=== PATIENT | male | born 1955 | race Caucasian/White ===

== ENCOUNTER 2016-09-28 05:44 | Inpatient (IN) | payer BC ==
[~2016-09-28] VITALS: Ht 162.6 cm; Wt 72.6 kg
[~2016-09-28 05:44] MED LIST: MULTTAB22 PO
[2016-09-28] MEDS ORDERED: CIPROFLOXACIN 400 MG in APPROPRIATE DILUENT 1 EA IV ONE (06:00)
[2016-09-28] MEDS ORDERED: LR 1,000 ML IV SCH ×2 (06:00→12:30)
[2016-09-28] MEDS ORDERED: fentaNYL 250 MCG/5 ML INJECTION (J3010) As Ordered ONE (07:20)
[2016-09-28] MEDS ORDERED: PROPOFOL 200 MG/20 ML VIAL As Ordered ONE ×2 (07:20→10:59)
[2016-09-28] MEDS ORDERED: MIDAZOLAM INJ 2 MG/2 ML VIAL (J2250) As Ordered ONE ×3 (07:20→11:26)
[2016-09-28] MEDS ORDERED: ROCURONIUM BROMIDE 50 MG/5 ML VIAL As Ordered ONE ×2 (07:20→08:55)
[2016-09-28] MEDS ORDERED: LIDOCAINE 2% INJ 100 MG/5 ML SDV (FOR ANES.) As Ordered ONE (07:20)
[2016-09-28] MEDS ORDERED: GLYCOPYRROLATE INJ 0.2 MG/ML 2 ML VIAL As Ordered ONE (08:55)
[2016-09-28] MEDS ORDERED: NEOSTIGMINE 1MG/ML 5 ML SYRINGE (J2710) As Ordered ONE (08:55)
[2016-09-28] MEDS ORDERED: LABETALOL HCL 100 MG/20 ML VIAL As Ordered ONE ×2 (08:55→12:21)
[2016-09-28] MEDS ORDERED: dexameTHASONE 4 MG/ML 1ML VIAL (J1100) As Ordered ONE (08:55)
[2016-09-28] MEDS ORDERED: ONDANSETRON 4MG/2ML VIAL (J2405) As Ordered ONE (09:04)
[2016-09-28] MEDS ORDERED: HYDROmorphone HCL 2 MG/ML 1ML VIAL (J1170) As Ordered ONE ×2 (09:04→13:24)
[2016-09-28] MEDS ORDERED: SEVOFLURANE INHAL SOLN 250 ML BTL As Ordered ONE (11:45)
[2016-09-28] MEDS ORDERED: KETOROLAC 30 MG/ML VIAL (J1885) As Ordered ONE (11:59)
[2016-09-28] MEDS: KETOROLAC 30 MG/ML VIAL (J1885) IV SCH (12:00)
[2016-09-28] MEDS: KCL 20MEQ IN D5/0.45NS 1000ML 1,000 ML IV SCH ×2 (12:15→21:27)
[2016-09-28] MEDS ORDERED: ONDANSETRON 4MG/2ML VIAL (J2405) IV PRN ×2 (12:15→12:30)
[2016-09-28] MEDS ORDERED: MORPHINE 4 MG/ML 1ML SYRINGE IV PRN (12:15)
[2016-09-28] MEDS ORDERED: oxyCODONE 5MG TAB PO PRN (12:15)
[2016-09-28] MEDS ORDERED: fentaNYL 100 MCG/2 ML INJECTION (J3010) IV PRN (12:30)
[2016-09-28] MEDS ORDERED: MORPHINE 2 MG/ML 1ML SYRINGE IV PRN (12:30)
[2016-09-28 12:44] LABS: MEAN CORPUSCULAR HEMOGLOBIN 34.5 pg (27.0-33.0); MEAN CORPUSCULAR VOLUME 95.8 fl (80.0-96.0); RED CELL DISTRIBUTION WIDTH 12.6 % (11.5-14.5); WHITE BLOOD COUNT 8.6 K/mm3 (4.0-10.0)
[2016-09-28 12:57] LABS: ANION GAP 8 MEQ/L (8-16); BLOOD UREA NITROGEN 9 MG/DL (7-18); CALCIUM LEVEL 8.4 MG/DL (8.8-10.2); CARBON DIOXIDE LEVEL 29 MEQ/L (21-32); CHLORIDE LEVEL 104 MEQ/L (98-107); CREATININE FOR GFR 0.91 MG/DL (0.70-1.30); GLOMERULAR FILTRATION RATE > 60.0 (>49); GLUCOSE, FASTING 150 MG/DL (80-110); POTASSIUM SERUM 4.5 MEQ/L (3.5-5.1); SODIUM LEVEL 141 MEQ/L (136-145)
[2016-09-28] MEDS ORDERED: PHENYLephrine HCL 500 MCG/5 ML (100MCG/ML) SYRINGE (J2370) As Ordered ONE (13:56)
[2016-09-28] MEDS ORDERED: ePHEDrine SULFATE 25 MG/5 ML(5MG/ML) SYRINGE As Ordered ONE (14:05)
[2016-09-28 14:45] VITALS: BP 136/72
[2016-09-28 15:15] VITALS: BP 137/72
[2016-09-28] MEDS: ACETAMINOPHEN 650MG ER TAB (TYLENOL ARTHRITIS) PO SCH ×2 (16:01→21:28)
[2016-09-28 16:15] VITALS: BP 123/72
[2016-09-28] MEDS: CIPROFLOXACIN 500 MG TAB PO SCH (17:45)
[2016-09-28 20:00] VITALS: BP 119/63
[2016-09-28] MEDS ORDERED: PANTOPRAZOLE 40MG INJ (PROTONIX) (C9113) IV SCH (21:00)
[2016-09-29 02:00] VITALS: BP 122/70
[2016-09-29] MEDS: KETOROLAC 30 MG/ML VIAL (J1885) IV SCH ×2 (03:03→12:31)
[2016-09-29] MEDS: ACETAMINOPHEN 650MG ER TAB (TYLENOL ARTHRITIS) PO SCH ×2 (05:22→14:49)
[2016-09-29] MEDS: CIPROFLOXACIN 500 MG TAB PO SCH (05:22)
[2016-09-29 06:00] VITALS: BP 123/65
--- NOTE | 2016-09-29 06:40 | RO ---
DATE OF PROCEDURE: 09/28/2016 PREOPERATIVE DIAGNOSIS: Prostate cancer. POSTOPERATIVE DIAGNOSIS: Prostate cancer. PROCEDURE: Robotic-assisted radical prostatectomy. SURGEON: Dr. Art Zimmer. AUTOMOTIVE PARTS COUNTER ASSISTANT: Elaine Bray. ANESTHESIA: General. COMPLICATIONS: None. ESTIMATED BLOOD LOSS: 100 mL. HISTORY OF PRESENT ILLNESS: This is a 61-year-old male patient with clinical stage [id number] prostate cancer, Macy 6, 2 positive biopsy out of 12. The patient had decided to undergo a robotic-assisted radical prostatectomy. For this reason, he is here. He already has erectile dysfunction. DESCRIPTION OF PROCEDURE: In a patient under general anesthesia in supine modified low lithotomy position, after prepping and draping the area of concern, which included the entire genitalia and abdomen. We started by doing an incision after introducing a Santos catheter 16-Occitan, inflated the balloon to 10 mL and put it to gravity and putting an orogastric tube to drain the gastric content. We did an incision infraumbilically vertical 2 cm in length. Through this incision, we cut the anterior rectus fascia in the midline. We dissected with finger dissection the Retzius space. We then placed a balloon space maker to actually dissect further the Retzius space. We then took out the balloon space marker and introduced a 12 mm trocar and inflated the balloon to 40 mL. Through this trocar, we insufflated the Retzius space with CO2 at a maximum pressure of 15 on high flow. We then placed a hand held robotic camera through the port and then placed the other trocars in a fan shaped manner. Two 8 mm metallic trocars were placed 8 cm away from each other on the right side, one 12 mm VersaStep placed 6 cm away from the midline on the left side and 8 cm away from this one, an 8 mm metallic trocar on the left side. We then proceeded to actually put the patient in steep Trendelenburg position. We then proceeded to actually dock the robot. On the left arm, we used Monopolar scissors, on the right arm we used bipolar PK and a ProGrasp. We then proceeded to dissect the periprosthetic fat and take it out away from the patient's prostate. We then cut the endopelvic fascia from base to apex and opened the endopelvic fascia bilaterally. We then cut the puboprostatic ligaments and then switched the scissors from bipolar PK for two needle holders and placed a dorsal vein complex stitch with a CT1 needle and #0 Vicryl. Once the dorsal vein complex was secured, we proceeded to actually put scissors and bipolar PK instead of needle holders and cut the anterior bladder neck. Once the bladder was totally open, we identified the Santos catheter, deflated the balloon and grabbed with a third arm the Santos catheter and put it into traction to put into traction the prostate anteriorly. We then proceeded to cut the posterior bladder neck and the posterior detrusor muscle. We then found the vas deferens in the midline and lateral to each vas deferens, we found the seminal vesicles. We dissected the seminal vesicles bilaterally and cut the vas deferens. At that moment in time with a third arm, we grabbed the vas deferens and seminal vesicles and traction it anteriorly to put into traction the posterior Denonvilliers fascia. With Monopolar scissors, we cut transversely the posterior Denonvilliers fascia and then dissected the rectum away from the prostate base and to the apex. We dissected the rectum away from the prostate completely from base to apex. We then proceeded to secure the prostatic pedicles with extra large Hem-o-amber times two on the left side and times two on the right side. We then proceeded to actually mobilize the prostate gland from base to apex, do an interfascial dissection and dissect the neurovascular bundles bilaterally up to the apex. Once this was performed, we cut the dorsal vein complex and cut the urethra. We then proceeded to actually put the prostate and seminal vesicles into Endo Catch bag. With a V-Loc, we reconstructed the posterior Denonvilliers fascia in a running fashion and then did our ureterovascular anastomosis with a double needle Quill #2-0 barbed absorbable suture. We started at 6 o'clock in the bladder neck outside in and inside out in a running fashion, 360 degrees around the clock. We then placed a Santos catheter #20-Occitan and inflated the balloon to 20 mL. We tested our anastomosis by putting 150 mL of normal saline. It was water tight. There was no leaks at that moment in time. We took out our third arm and placed a 15 blade around Catracho-Mendoza drain. We took all the instruments out and undocked the robot. We secured the drain to the skin with #3-0 Nylon and then placed to bulb suction. We extracted the specimen through the midline incision after taking all the trocars out. We closed the rectus muscle aponeurosis in the midline with a UR6 needle and a #2-0 Vicryl in a running fashion and closed each incision site with #4-0 Monocryl subcuticular stitches in a running fashion. We placed Mastisol, Steri-Strips, telfa and Tegaderm on top of the incision site. PLAN: The patient will pass to recovery and then to the floor. Once he is tolerating a regular diet, ambulating very well and pain is under control, he will be discharged home. The prostate and seminal vesical was sent for permanent pathology analysis.
[2016-09-29 06:52] LABS: MEAN CORPUSCULAR HEMOGLOBIN 32.1 pg (27.0-33.0); MEAN CORPUSCULAR VOLUME 97.4 fl (80.0-96.0); RED CELL DISTRIBUTION WIDTH 13.4 % (11.5-14.5); WHITE BLOOD COUNT 11.7 K/mm3 (4.0-10.0)
[2016-09-29 06:59] LABS: ANION GAP 7 MEQ/L (8-16); BLOOD UREA NITROGEN 9 MG/DL (7-18); CALCIUM LEVEL 8.1 MG/DL (8.8-10.2); CARBON DIOXIDE LEVEL 27 MEQ/L (21-32); CHLORIDE LEVEL 106 MEQ/L (98-107); CREATININE FOR GFR 0.87 MG/DL (0.70-1.30); GLOMERULAR FILTRATION RATE > 60.0 (>49); GLUCOSE, FASTING 121 MG/DL (80-110); POTASSIUM SERUM 4.1 MEQ/L (3.5-5.1); SODIUM LEVEL 140 MEQ/L (136-145)
[2016-09-29] MEDS: KCL 20MEQ IN D5/0.45NS 1000ML 1,000 ML IV SCH (09:37)
[2016-09-29] MEDS ORDERED: PERCOCET PO (16:43)
[2016-09-29] MEDS ORDERED: CIPR500T3 PO (16:43)
--- NOTE | 2016-09-30 09:40 | DSES ---
DATE OF ADMISSION: 09/28/2016 DATE OF DISCHARGE: 09/29/2016 ADMISSION DIAGNOSIS: Prostate cancer. DISCHARGE DIAGNOSIS: Prostate cancer. SURGERY PERFORMED: Robotic-assisted radical prostatectomy. ADMITTING SURGEON: Dr. Art Zimmer DISCHARGE SURGEON: Dr. Art Zimmer COMPLICATIONS: None. HISTORY OF PRESENT ILLNESS: This is a 61-year-old male patient with a history of prostate cancer. The patient has a clinical stage cT1c NX MX prostate cancer, Fabrice , 3+3, and 2 positive biopsies out of 12. The patient has consented for robotic assisted radical prostatectomy which was performed on 09/28/2016. The patient was admitted after this. HOSPITALIZATION COURSE: The patient did very well. By postoperative day #1, he was tolerating a regular diet and ambulating very well. The urine output was around 2000 per day. His Catracho-Mendoza (J-P) output was around 150 mL per day. The patient requested to go home and we agreed upon this. The patient will go home with a regular diet, ambulate three times a day, no heavy lifting above 20 pounds. He will have ciprofloxacin 500 mg one tablet by mouth twice a day for ten days and Percocet 5/325 mg one tablet by mouth every six hours as needed for pain. He will go home with a Santos catheter and a J-P to a bulb suction. The patient will come this Tuesday for removal of the J-P if the drainage is less than 30 mL per day. He will followup in ten days for removal of Santos catheter and a voiding trial. There were no complications during surgery and hospitalization.
== END 2016-09-29 17:40 | disposition home or self-care (01) | DRG 484 ==
LOC: M OR 05:44 → M MS5PR 14:35
PROVIDERS: ADMIT Urology; ATTEND Urology
PROC: 8E0W4CZ Robotic Assisted Procedure of Trunk Region, Percutaneous Endoscopic Approach (ICD-10-PCS; 2016-09-28)
PROC: 0VT04ZZ Resection of Prostate, Percutaneous Endoscopic Approach (ICD-10-PCS; principal; 2016-09-28 07:30)
DX: C61 Malignant neoplasm of prostate (principal); N52.9 Male erectile dysfunction, unspecified

== ENCOUNTER → 2023-03-23 | Outpatient (REF) | payer MEDICARE ==
[~2023-03-23] MED LIST changes: +CIPR500T3 PO; +PERCOCET PO
== END ==
LOC: M SFHCDERM 17:44
PROVIDERS: ATTEND Physician Assistant
DX: D49.2 Neoplasm of unspecified behavior of bone, soft tissue, and skin (principal); L82.1 Other seborrheic keratosis

== ENCOUNTER → 2023-06-21 | Outpatient (REF) | payer MEDICARE ==
[2023-06-29 14:08] LABS: CA Oxalate Dihy 10 % (.); Ca Ox Monohydrate 90 % (.)
== END ==
LOC: M SMT 17:26
PROVIDERS: ATTEND Urology
DX: N20.0 Calculus of kidney (principal)

== ENCOUNTER → 2024-04-25 | Outpatient (REF) | payer MEDICARE | LOC: M SFHCDERM 18:01 | PROVIDERS: ATTEND Physician Assistant | DX: D48.5 Neoplasm of uncertain behavior of skin (principal) ==